=== PATIENT | male | born 1995 | race Caucasian/White ===

== ENCOUNTER 2018-08-01 21:23 | Emergency (ER) | payer OTHER ==
[~2018-08-01] VITALS: Ht 177.8 cm; Wt 86.2 kg
[2018-08-01] MEDS ORDERED: NOHOMEMEDICATIONS (22:33)
[2018-08-02] MEDS ORDERED: NORCO 5-325 TA1 EACH PO (01:18)
[2018-08-02 02:38] VITALS: BP 125/73
[2018-08-03] MEDS ORDERED: SENNA-DOCUSATE1 EAC1 PO (01:10)
[2018-08-03] MEDS ORDERED: PERCOCET 7.5-31 EAC1 PO (01:10)
[2018-08-03] MEDS ORDERED: NAPROSYN500 MG PO (01:10)
== END 2018-08-02 02:40 | disposition home or self-care (01) ==
LOC: ER 21:23
DX: T23.231A Burn of second degree of multiple right fingers (nail), not including thumb, initial encounter (principal); T31.0 Burns involving less than 10% of body surface; X10.2XXA Contact with fats and cooking oils, initial encounter; Y93.89 Activity, other specified; Y92.89 Other specified places as the place of occurrence of the external cause; Y99.8 Other external cause status

== ENCOUNTER 2018-08-02 23:45 | Emergency (ER) | payer OTHER ==
[~2018-08-02] VITALS: Ht 180.3 cm; Wt 86.2 kg
[~2018-08-02 23:45] MED LIST: NOHOMEMEDICATIONS; NORCO 5-325 TA1 EACH PO
[2018-08-03] MEDS ORDERED: SENNA-DOCUSATE1 EAC1 PO (01:10)
[2018-08-03] MEDS ORDERED: NAPROSYN500 MG PO (01:10)
[2018-08-03] MEDS ORDERED: PERCOCET 7.5-31 EAC1 PO (01:10)
[2018-08-03 01:35] VITALS: BP 122/85
== END 2018-08-03 01:35 | disposition home or self-care (01) ==
LOC: ER 23:45
DX: T23.231A Burn of second degree of multiple right fingers (nail), not including thumb, initial encounter (principal); T31.0 Burns involving less than 10% of body surface; X10.2XXA Contact with fats and cooking oils, initial encounter; Y93.89 Activity, other specified; Y92.89 Other specified places as the place of occurrence of the external cause; Y99.8 Other external cause status